=== PATIENT | male | born 1960 | race Caucasian/White ===

== ENCOUNTER 2024-05-30 12:11 | Emergency (ER) | payer MEDICARE ==
[~2024-05-30] VITALS: Ht 175.3 cm; Wt 99.8 kg
[2024-05-30] MEDS ORDERED: ROSU10TA2 PO ×2 (12:27→12:48)
[2024-05-30] MEDS ORDERED: HYDR12.55 PO ×2 (12:27→12:48)
[2024-05-30] MEDS ORDERED: LOSA100T31 PO ×2 (12:27→12:48)
[2024-05-30] MEDS ORDERED: METO50TA7 PO ×2 (12:27→12:48)
[2024-05-30 12:54] VITALS: BP 143/87; O2SAT 99
== END 2024-05-30 12:55 | disposition home or self-care (01) ==
LOC: ER 12:11
DX: I10 Essential (primary) hypertension (principal); R51.9 Headache, unspecified; E78.5 Hyperlipidemia, unspecified; Z76.0 Encounter for issue of repeat prescription; Z79.899 Other long term (current) drug therapy
CPT/HCPCS: A4606; A4663